=== PATIENT | male | born 1950 | race African-American/Black ===

== ENCOUNTER 2017-02-01 18:08 | Emergency (ER) | payer OTHER ==
[~2017-02-01] VITALS: Ht 165.1 cm; Wt 98.0 kg
[~2017-02-01 18:08] MED LIST: ASPIRIN81 M1 PO; ATORVASTATIN CA10 MG PO; BENAZEPRIL HCL40 MG PO; FISH OIL 1,0001 EAC7 PO; FISH OIL500 MG PO; GLIPIZIDE ER2.5 MG PO; LIPITOR10 MG PO; LO-DOSE ASPIRIN81 M1 PO; LOTENSIN10 MG PO; METFORMIN HCL500 MG PO; NEURONTIN300 MG PO; OXYCONTIN20 MG PO; PERCOCET 5/31 TABLET PO; VERAPAMIL HCL80 MG PO; VITAMIN D-32000 UNI2 PO; VITAMIN D5000 UNI1 PO; [UNRECOGNIZED DRUG - REMARK]; [UNRECOGNIZED DRUG - REMARK]
[2017-02-01 20:13] LABS: HEMATOCRIT 39.8 % (38.0-50.0); MCH 32.1 PG (29.0-34.0); MCHC 33.7 G/DL (30.0-36.0); MCV 95.2 FL (86-99); MEAN PLAT.VOLUME 9.2 uM^3 (9.0-12.4); PLATELET COUNT 270 K/uL (156-360); RBC DIS.WIDTH-CV 12.8 % (11.8-14.6); RBC DIS.WIDTH-SD 44.5 % (39-53); RED BLOOD COUNT 4.18 M/uL (4.00-5.50); WHITE BLOOD COUNT 7.4 K/uL (4.1-10.2)
[2017-02-01 20:30] LABS: CHLORIDE 107 mEq/L (99-109); POTASSIUM 3.9 mEq/L (3.7-5.4); SODIUM 138 mEq/L (136-147)
[2017-02-01 20:32] LABS: GLUCOSE 134 mg/dL (70-99)
[2017-02-01 20:34] LABS: ANION GAP 7 MEQ/L (2-14); TOTAL BILIRUBIN 0.2 mg/dL (0.0-1.0)
[2017-02-01 20:36] LABS: GFR ESTIMATE (CALCULATED) > 59 mL/min/
[2017-02-01 20:38] LABS: TROP-I INTERPRETATION NEGATIVE; TROPONIN-I < 0.01 ng/mL (0.0-0.30)
[2017-02-01 20:39] LABS: LIPASE 52 U/L (1.0-51.0)
[2017-02-01 21:04] LABS: ALKALINE PHOSPHATASE 60 IU/L (3-129)
[2017-02-01 21:05] LABS: UREA NITROGEN (BUN) 18 mg/dL (9-23)
[2017-02-01 22:06] VITALS: BP 119/67
== END 2017-02-01 22:06 | disposition home or self-care (01) ==
LOC: EME 18:08
PROVIDERS: Physician Assistant
DX: S43.401A Unspecified sprain of right shoulder joint, initial encounter (principal); M62.838 Other muscle spasm; X58.XXXA Exposure to other specified factors, initial encounter; R94.31 Abnormal electrocardiogram [ECG] [EKG]
CPT/HCPCS: 71020; 80053; 83690; 84484; 85027; 93005; 99281; 99285

== ENCOUNTER 2017-06-20 10:12 | Emergency (ER) | payer OTHER ==
[~2017-06-20] VITALS: Ht 165.1 cm; Wt 98.2 kg
[2017-06-20 13:08] VITALS: BP 130/92
== END 2017-06-20 13:11 | disposition home or self-care (01) ==
LOC: EME 10:12
DX: S93.402A Sprain of unspecified ligament of left ankle, initial encounter (principal); X50.1XXA Overexertion from prolonged static or awkward postures, initial encounter; Y93.01 Activity, walking, marching and hiking; M79.672 Pain in left foot; E11.9 Type 2 diabetes mellitus without complications; I10 Essential (primary) hypertension; F17.200 Nicotine dependence, unspecified, uncomplicated; Z79.84 Long term (current) use of oral hypoglycemic drugs; Z79.82 Long term (current) use of aspirin
CPT/HCPCS: 73610; 73630; 99281; 99284

== ENCOUNTER 2017-07-05 08:33 | Day surgery (SDC) | payer OTHER ==
[~2017-07-05] VITALS: Ht 165.1 cm; Wt 90.7 kg
[~2017-07-05 08:33] MED LIST changes: +CLINORIL200 MG PO; +NEURONTIN400 MG PO; +ZANAFLEX2 M1 PO
== END 2017-07-05 10:58 | disposition home or self-care (01) ==
LOC: PAIN 08:33 → SDC 09:30 → PAIN 10:58
PROVIDERS: Anesthesiology Pain Medicine
DX: M47.26 Other spondylosis with radiculopathy, lumbar region (principal); M51.16 Intervertebral disc disorders with radiculopathy, lumbar region; M46.1 Sacroiliitis, not elsewhere classified; I10 Essential (primary) hypertension; E11.9 Type 2 diabetes mellitus without complications; G47.33 Obstructive sleep apnea (adult) (pediatric); E66.9 Obesity, unspecified; Z68.33 Body mass index [BMI] 33.0-33.9, adult; K21.9 Gastro-esophageal reflux disease without esophagitis; Z79.82 Long term (current) use of aspirin; Z79.891 Long term (current) use of opiate analgesic; F17.200 Nicotine dependence, unspecified, uncomplicated
CPT/HCPCS: 82948; J1030; J2250; J3010; S0020

== ENCOUNTER 2017-08-24 11:56 | Day surgery (SDC) | payer OTHER ==
[~2017-08-24] VITALS: Ht 165.1 cm; Wt 96.6 kg
[~2017-08-24 11:56] MED LIST changes: +GLUCOPHAGE500 MG PO; +STOOL SOFTENER100 M1 PO
== END 2017-08-24 14:07 | disposition home or self-care (01) ==
LOC: PAIN 11:56
PROVIDERS: Anesthesiology Pain Medicine
DX: M47.816 Spondylosis without myelopathy or radiculopathy, lumbar region (principal); M51.16 Intervertebral disc disorders with radiculopathy, lumbar region; M46.1 Sacroiliitis, not elsewhere classified; M16.51 Unilateral post-traumatic osteoarthritis, right hip; T14.90XS Injury, unspecified, sequela; I10 Essential (primary) hypertension; G47.33 Obstructive sleep apnea (adult) (pediatric); E11.9 Type 2 diabetes mellitus without complications; Z79.891 Long term (current) use of opiate analgesic; Z79.82 Long term (current) use of aspirin; Z79.84 Long term (current) use of oral hypoglycemic drugs; F17.210 Nicotine dependence, cigarettes, uncomplicated
CPT/HCPCS: 82948; J1030; J2250; J3010; S0020

== ENCOUNTER 2017-11-17 17:39 | Emergency (ER) | payer OTHER ==
[~2017-11-17] VITALS: Ht 165.1 cm; Wt 94.6 kg
[2017-11-17 20:04] VITALS: BP 133/77
== END 2017-11-17 20:04 | disposition home or self-care (01) ==
LOC: EME 17:39
DX: S16.1XXA Strain of muscle, fascia and tendon at neck level, initial encounter (principal); S39.012A Strain of muscle, fascia and tendon of lower back, initial encounter; V49.40XA Driver injured in collision with unspecified motor vehicles in traffic accident, initial encounter; Y92.410 Unspecified street and highway as the place of occurrence of the external cause; M51.36 Other intervertebral disc degeneration, lumbar region; M50.322 Other cervical disc degeneration at C5-C6 level; Z79.891 Long term (current) use of opiate analgesic
CPT/HCPCS: 72040; 72100; 99281; 99283